=== PATIENT | female | born 1970 | race Hispanic/Latino ===

== ENCOUNTER 2018-06-27 18:22 | Emergency (ER) | payer BC ==
[~2018-06-27] VITALS: Ht 167.6 cm; Wt 95.3 kg
== END 2018-06-27 20:24 | disposition home or self-care (01) ==
LOC: FSED 18:22
DX: M54.2 Cervicalgia (principal); S16.1XXA Strain of muscle, fascia and tendon at neck level, initial encounter; E11.9 Type 2 diabetes mellitus without complications; E78.5 Hyperlipidemia, unspecified; Z85.43 Personal history of malignant neoplasm of ovary
CPT/HCPCS: 99283